=== PATIENT | female | born 1980 | race Caucasian/White ===

== ENCOUNTER 2017-04-19 16:27 | Emergency (ER) | payer OTHER ==
[~2017-04-19] VITALS: Ht 170.2 cm; Wt 78.2 kg
[2017-04-19 17:56] VITALS: BP 125/83; Ht 170.2 cm; Wt 78.2 kg
== END 2017-04-19 20:57 | disposition home or self-care (01) ==
LOC: ED 16:27
DX: N61.0 Mastitis without abscess (principal); Z88.0 Allergy status to penicillin
CPT/HCPCS: 76641; J1885; Q0092

== ENCOUNTER 2017-05-18 21:16 | Emergency (ER) | payer OTHER ==
[~2017-05-18] VITALS: Ht 170.2 cm; Wt 77.1 kg
[2017-05-18 21:27] VITALS: BP 122/75; Ht 170.2 cm; Wt 77.1 kg
== END 2017-05-18 22:37 | disposition left against medical advice (07) ==
LOC: ED 21:16
DX: Z53.21 Procedure and treatment not carried out due to patient leaving prior to being seen by health care provider (principal)

== ENCOUNTER 2018-04-07 15:16 | Emergency (ER) | payer OTHER ==
[~2018-04-07] VITALS: Ht 170.2 cm; Wt 73.0 kg
[2018-04-07 15:29] VITALS: Ht 170.2 cm; Wt 73.0 kg
[2018-04-07 16:48] VITALS: BP 114/76
== END 2018-04-07 16:48 | disposition home or self-care (01) ==
LOC: ED 15:16
DX: F41.9 Anxiety disorder, unspecified (principal); Z88.0 Allergy status to penicillin; Z90.89 Acquired absence of other organs

== ENCOUNTER 2020-01-13 12:47 | Emergency (ER) | payer OTHER ==
[~2020-01-13] VITALS: Ht 170.2 cm; Wt 75.7 kg
[2020-01-13 13:11] VITALS: Ht 170.2 cm; Wt 75.7 kg
[2020-01-13 14:53] LABS: UA SPECIFIC GRAVITY 1.015 (1.005-1.035); microscopic required? YES; urine erythrocyte 3+ (NEGATIVE)
[2020-01-13 15:01] LABS: BASOPHIL % 1.3 % (0-2); PLATELET COUNT 245 x10^3mcL (130-400); RED CELL DISTRIBUTION WIDTH 14.7 % (11.5-14.5)
[2020-01-13 15:11] LABS: CALCIUM 8.4 mg/dL (8.5-10.1); CARBON DIOXIDE 26.8 mmol/L (21-32); CHLORIDE SERUM 103 mmol/L (98-107); CREATININE SERUM 0.8 mg/dL (0.6-1.0); GFR1 > 60 mL/min; GLUCOSE SERUM 90 mg/dL (74-106); POTASSIUM SERUM 3.7 mmol/L (3.5-5.1); SODIUM SERUM 137 mmol/L (136-145)
[2020-01-13 15:15] LABS: ALBUMIN 3.6 g/dL (3.4-5.0); ALKALINE PHOSPHATASE 41 U/L (46-116); ALT/SGPT 18 U/L (14-59); AST/SGOT 15 U/L (15-37); BILIRUBIN TOTAL 0.2 mg/dL (0.20-1.00); LIPASE 91 IU/L (73-393); TOTAL PROTEIN, SERUM 7.2 g/dL (6.4-8.2)
[2020-01-13 16:02] VITALS: BP 112/83
== END 2020-01-13 16:02 | disposition home or self-care (01) ==
LOC: ED 12:47
PROVIDERS: Student in an Organized Health Care Education/Training Program
DX: N39.0 Urinary tract infection, site not specified (principal); Z88.0 Allergy status to penicillin
CPT/HCPCS: J2270

== ENCOUNTER 2020-01-14 09:54 | Emergency (ER) | payer OTHER ==
[~2020-01-14] VITALS: Ht 170.2 cm; Wt 75.7 kg
[2020-01-14 10:01] VITALS: Ht 170.2 cm; Wt 75.7 kg
[2020-01-14 12:22] LABS: microscopic required? YES; urine erythrocyte 1+ (NEGATIVE)
[2020-01-14 12:49] LABS: PLATELET COUNT 253 x10^3mcL (130-400)
[2020-01-14 12:50] LABS: RED CELL DISTRIBUTION WIDTH 15.1 % (11.5-14.5)
[2020-01-14 13:18] VITALS: BP 107/73
== END 2020-01-14 13:18 | disposition home or self-care (01) ==
LOC: ED 09:54
PROVIDERS: Emergency Medicine
DX: A09 Infectious gastroenteritis and colitis, unspecified (principal); T36.95XA Adverse effect of unspecified systemic antibiotic, initial encounter; Z88.0 Allergy status to penicillin; Y92.89 Other specified places as the place of occurrence of the external cause